=== PATIENT | male | born 1965 | race Caucasian/White ===

== ENCOUNTER 2017-03-23 02:43 | Emergency (ER) | payer OTHER ==
[~2017-03-23] VITALS: Ht 185.4 cm; Wt 119.7 kg
[~2017-03-23 02:43] MED LIST: MOTRIN800 MG PO; PERCOCET 325 MG1 TA2 PO
[2017-03-23 02:48] VITALS: BP 176/82
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
[2017-03-23] MEDS ORDERED: FLUCONAZOLE100 M1 PO (02:55)
[2017-03-23] MEDS ORDERED: CRESTOR5 M1 PO (02:55)
[2017-03-23] MEDS ORDERED: FLUTICASONE PRO16 GM NASB (02:56)
[2017-03-23] MEDS ORDERED: AZELASTINE137 MCG/0. NASB (02:57)
[2017-03-23] MEDS ORDERED: ALLOPURINOL100 M1 PO (02:57)
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
[2017-03-23] MEDS ORDERED: CYCLOBENZAPRINE10 M1 PO (05:20)
[2017-03-23] MEDS ORDERED: IBUPROFEN800 M1 PO (05:20)
== END 2017-03-23 05:32 ==
LOC: ERH 02:43
DX: S06.0X0A Concussion without loss of consciousness, initial encounter (principal); M54.2 Cervicalgia; M54.5 Low back pain; V49.40XA Driver injured in collision with unspecified motor vehicles in traffic accident, initial encounter; Y92.410 Unspecified street and highway as the place of occurrence of the external cause
CPT/HCPCS: 72110